=== PATIENT | female | born 2000 | race African-American/Black ===

== ENCOUNTER 2024-01-18 02:18 | Emergency (ER) | payer OTHER, SELFPAY ==
[2024-01-18 02:18] VITALS: BMI 24.1
[2024-01-18 02:24] VITALS: BP 126/74
--- NOTE | 2024-01-18 03:21 | ED.GENMED ---
History of Present Illness
<KATERINE Merida - Last Filed: 01/18/24 03:39>
General
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
Source: patient
Exam Limitations: none
Time Seen by Provider: 01/18/24 03:02
Nursing documentation reviewed up to this point in time: agreed with
Travel History
Have you had any contact with someone who has COVID-19?: No
Do you have any symptoms of coronavirus? Fever > 100 degrees, chills, cough, shortness of breath, sore throat, loss of taste or smell, muscle aches, or headache?: No
History of Present Illness
History of Present Illness:
23 y/o F presents to ED requesting STI testing. Patient is asymptomatic. She is concerned because she reports her current sexual partner is having STI symptoms and has not yet been tested. She was last sexually active with him 2 weeks ago. Patient
had BV 3 weeks ago but was treated. She is requesting to be tested for BV and yeast again. Patient states she often gets yeast infection after BV treatment. Denies discharge, odor, suprapubic back, back pain, fever, chills, or dysuria.
Review of Systems
<KATERINE Merida - Last Filed: 01/18/24 03:39>
Review of Systems
Allergies reviewed?: Yes
All Other Systems: ROS reviewed and negative except as documented in HPI and ROS
Constitutional: Reports no symptoms
EENT: Reports no symptoms
Respiratory: Reports no symptoms
Cardiac: Reports no symptoms
ABD/GI: Reports no symptoms
: Reports no symptoms
Musculoskeletal: Reports no symptoms
Skin: Reports no symptoms
Neurological: Reports no symptoms
Endocrine: Reports no symptoms
Hematologic/Lymphatic: Reports no symptoms
Psychiatric: Reports no symptoms
Phy Exam
<KATERINE Merida - Last Filed: 01/18/24 03:39>
General Physical Exam
General Presentation: well appearing and no apparent distress
General age: appears stated age
General Skin: warm and dry
General Habitus: normal
General Mental: alert
General Hydration: appears well hydrated
Cardiovascular Exam
Cardiovascular Exam: regular rate/rhythm, no edema, no gallop, no murmur and normal peripheral pulses
Pulmonary Exam
Pulmonary Exam: lungs clear, no respiratory distress, no rales, no crackles and no rhonchi
Gastrointestinal Exam
Gastrointestinal Exam: non tender, soft and non distended
Neurological Exam
Neurological Exam: alert and oriented x3
Skin Exam
Skin Exam: normal color, warm/dry and no rash
Psychiatric Exam
Psychiatric Exam: normal mood/affect
Course
<KATERINE Merida - Last Filed: 01/18/24 03:39>
Orders/Labs/Results
Orders:
Orders
01/18/24 02:40
Chlamydia/GC by PCR Urgent
ABHIJIT Source: Urine
Specimen Description:
Source:: URINE
Date Specimen was Collected: 01/18/24
Time Specimen was Collected: 02:38
01/18/24 03:03
HCG, Urine Qualitative Screen Urgent
Date Specimen was Collected: 01/18/24
Time Specimen was Collected: 03:13
01/18/24 03:04
Test Result ONCE
01/18/24 03:39
Ceftriaxone Sodium [Rocephin] 500 mg IM NOW STA
01/18/24 03:42
MetroNIDAZOLE [Flagyl] 500 mg PO NOW STA
01/18/24 03:43
Doxycycline [Vibramycin] 100 mg PO NOW STA
01/18/24 03:50
Fluconazole [Diflucan] 150 mg PO NOW STA
Vital Signs
Initial and Last Documented VS:
Initial Vital Signs
Temp Pulse Resp BP Pulse Ox
98.7 F 80 16 126/74 96
01/18/24 02:24 01/18/24 02:24 01/18/24 02:24 01/18/24 02:24 01/18/24 02:24
Last Documented Vital Signs
Temp Pulse Resp BP Pulse Ox
98.7 F 80 16 126/74 96
01/18/24 02:24 01/18/24 02:24 01/18/24 02:24 01/18/24 02:24 01/18/24 02:24
<Dipak Dang, DO - Last Filed: 01/18/24 05:31>
Orders/Labs/Results
Orders:
Orders
01/18/24 02:40
Chlamydia/GC by PCR Urgent
ABHIJIT Source: Urine
Specimen Description:
Source:: URINE
Date Specimen was Collected: 01/18/24
Time Specimen was Collected: 02:38
01/18/24 03:03
HCG, Urine Qualitative Screen Urgent
Date Specimen was Collected: 01/18/24
Time Specimen was Collected: 03:13
01/18/24 03:04
Test Result ONCE
01/18/24 03:39
Ceftriaxone Sodium [Rocephin] 500 mg IM NOW STA
01/18/24 03:42
MetroNIDAZOLE [Flagyl] 500 mg PO NOW STA
01/18/24 03:43
Doxycycline [Vibramycin] 100 mg PO NOW STA
01/18/24 03:50
Fluconazole [Diflucan] 150 mg PO NOW STA
Vital Signs
Initial and Last Documented VS:
Initial Vital Signs
Temp Pulse Resp BP Pulse Ox
98.7 F 80 16 126/74 96
01/18/24 02:24 01/18/24 02:24 01/18/24 02:24 01/18/24 02:24 01/18/24 02:24
Last Documented Vital Signs
Temp Pulse Resp BP Pulse Ox
98.7 F 80 16 126/74 96
01/18/24 02:24 01/18/24 02:24 01/18/24 02:24 01/18/24 02:24 01/18/24 02:24
<KATERINE Merida - Last Filed: 01/18/24 03:39>
MDM/Problems Addressed
Differential Diagnosis Includes:
STI testing
BV
Yeast
MDM/Problems Addressed:
23 y/o F presents to ED asymptomatic wanting to be tested for STI. Gonorrhea/Chlamydia ordered and pending. Will treat prophylactically with Ceftriaxone and Azithromycin. Will treat with Flagyl 500mg BID x 7 days. Patient also prescribed Fluconazole
150mg PO once given history of rich after abx prescription.
<Dipak Dang DO - Last Filed: 01/18/24 05:31>
*Critical Care Note
Total Time (30-74mins, 75-104mins- exclusive of procedures): Not Applicable
ED Attending Note
<KATERINE Merida - Last Filed: 01/18/24 03:39>
-
Portions of this chart may have been created with voice recognition software.� Occasional wrong word or��sound alike� substitutions may have occurred due to the inherent limitations of voice recognition software.
<Dipak Dang DO - Last Filed: 01/18/24 05:31>
ED Attending Note
Patient seen and examined by attending physician: Yes
ED Attending Note:
Pleasant female that presents requesting STD testing. Patient is currently asymptomatic but has had unprotected sexual intercourse with somebody that has STI symptoms. Patient denies vaginal bleeding or discharge. Reports no symptoms but is
concerned since her sexual partner has been having unprotected sex with multiple partners who also possibly have symptoms. After discussion, patient wishes to be treated empirically. Patient was seen in conjunction with the PA student. I have
reviewed and agree with the history and treatment plan presented. On my independent physical exam, patient is awake, alert, and oriented x3, no acute distress. Patient absolutely refuses pelvic exam at this time. She does have a local physician.
We will treat her empirically.
Discharge Plan
Departure
Patient Disposition: Home (Routine Discharge)
Date of Disposition: 01/18/24
Time of Disposition: 04:06
Patient with high blood pressure during this ER visit?: Yes
Condition: Good
Discharge Problem:
Possible exposure to STD
Instructions: Sexually Transmitted Diseases ED, BLOOD PRESSURE
Prescriptions:
New
doxycycline monohydrate 150 mg capsule
150 mg PO BID Qty: 14 0RF
metronidazole 500 mg tablet
500 mg PO BID 7 Days Qty: 14 0RF
Referrals:
Mey Arthur CRNP, MSN [Family Provider] -
Activity Restrictions/Additional Instructions:
It was a pleasure meeting you and taking part in your care. We hope for your continued healing and wellness.
Please read discharge instructions in their entirety. However, they are for general education and may not describe your exact diagnosis at discharge. Information on your ER visit and medical conditions were discussed with you along with appropriate
follow up information...
If indicated, please take your medications as instructed and indicated on discharge paperwork.
Please schedule a follow up appointment as directed. Call to schedule an appointment
Please return to the emergency department with ANY change in, persisting, or worsening of symptoms. If any of your symptoms do not improve, or persist, or become more severe within 6-12 hours, please return to the emergency department for further
care.
Please return to the emergency department if you develop a headache, neck pain/stiffness, fever greater than 100.4F, chest pain, shortness of breath, persistent nausea, vomiting, slurred speech, difficulty walking, numbness/tingling, weakness, signs
of infection or any other symptoms that are worrisome to you.
If you have any questions or concerns please do not hesitate to call the Hospital at
Interventions
Interventions:
*Risk Screen - Suicide Last Done: 01/18/24 02:24
*General Assessment Last Done: 01/18/24 02:24
*Neglect/Abuse Screening Last Done: 01/18/24 02:24
ED- Fall Risk Assessment Last Done: 01/18/24 04:10
*ED COVID-19 Vaccine History Last Done: 01/18/24 02:24
*Nursing Disposition Last Done: 01/18/24 04:11
ED-Female Genitourinary Assessment Last Done: 01/18/24 03:26
Discharge Date and Time
Discharge Date/Time: 01/18/24 04:12
[2024-01-18 03:29] LABS: HCG, Urine Qualitative Screen Negative
[2024-01-18] MEDS: VIBRAMYCIN 100 MG PO (04:03)
[2024-01-18] MEDS: DIFLUCAN 150 MG PO (04:03)
[2024-01-18] MEDS: FLAGYL 500 MG PO (04:03)
[2024-01-18] MEDS: ROCEPHIN 500 MG IM (04:04)
== END 2024-01-18 04:12 | disposition home or self-care (01) ==
LOC: EMR 02:18
PROVIDERS: EMERGENCY PHYSICIAN Student in an Organized Health Care Education/Training Program; FAMILY PHYSICIAN Nurse Practitioner Pediatrics
DX: Z20.2 Contact with and (suspected) exposure to infections with a predominantly sexual mode of transmission (principal); R03.0 Elevated blood-pressure reading, without diagnosis of hypertension
CPT/HCPCS: 99284; 96372; 81025; 87491; 87591